=== PATIENT | female | born 1985 | race Caucasian/White ===

== ENCOUNTER 2021-07-17 18:21 | Emergency (ER) | payer OTHER ==
[~2021-07-17 18:21] MED LIST: CLEOCIN HCL300 MG PO
[2021-07-17 19:32] LABS: HEMOGLOBIN 13.6 gm/dl (12.3-15.3); RED BLOOD COUNT 4.22 M/UL (4.00-5.10); WHITE BLOOD COUNT 4.3 K/UL (4.5-11.0)
[2021-07-17 20:11] LABS: BUN/CREATININE RATIO 10 (0-10)
[2021-07-17] MEDS ORDERED: NAPROSYN500 MG PO (21:32)
[2021-07-17] MEDS ORDERED: CYCLOBENZAPRINE5 MG PO (21:32)
[2021-07-17] MEDS ORDERED: COLACE 100MG C100 MG PO (21:32)
== END 2021-07-17 21:50 | disposition home or self-care (01) ==
LOC: ER1 18:21
PROVIDERS: Nurse Practitioner
DX: S39.012A Strain of muscle, fascia and tendon of lower back, initial encounter (principal); K59.00 Constipation, unspecified; F17.210 Nicotine dependence, cigarettes, uncomplicated; Z88.0 Allergy status to penicillin; X58.XXXA Exposure to other specified factors, initial encounter
CPT/HCPCS: 72100; 80053; 81001; 84703; 85025; 85652; 86140; 99283